=== PATIENT | male | born 1945 | race Caucasian/White ===

== ENCOUNTER 2016-10-05 06:57 | Inpatient (IN) | payer MEDICARE, BC ==
[2016-10-05] MEDS: SODIUM CHLORIDE 0.9% FLUSH 10 ML SOL IV PRN ×2 (08:06→09:17)
[2016-10-05 08:09] LABS: BASOPHILS % (AUTO) 1 % (0-3); EOSINOPHILS % (AUTO) 2 % (0-9); HEMATOCRIT 26 % (39-53); MEAN CORPUSCULAR HGB CONC 33.1 gm/dl (32.0-36.0); NEUTROPHILS % (AUTO) 85.5 % (37-80)
[2016-10-05 08:10] LABS: MEAN CORPUSCULAR VOLUME 100 fL (80-100)
[2016-10-05 08:19] LABS: CALCIUM 8.7 mg/dl (8.5-10.1); POTASSIUM 4.2 mMol/L (3.5-5.1)
[2016-10-05] MEDS ORDERED: METOPROLOL SUCCINATE 25 MG TAB.ER.24H PO SCH (09:00)
[2016-10-05] MEDS ORDERED: FUROSEMIDE 20mg SOL IV ONE (09:15)
[2016-10-05] MEDS ORDERED: FUROSEMIDE 20mg SOL ONE (09:16)
[2016-10-05 09:42] LABS: APPEARANCE,URINE Clear; BILIRUBIN,URINE NEGATIVE (NEGATIVE); COLOR,URINE Yellow; GLUCOSE, URINE (UA) TRACE (NEGATIVE); KETONES,URINE NEGATIVE (NEGATIVE); LEUKOCYTE ESTERASE ,URINE NEGATIVE (NEGATIVE); NITRATE,URINE NEGATIVE (NEGATIVE); OCCULT BLOOD,URINE NEGATIVE (NEG-TRACE); PH,URINE 6.5; UROBILINOGEN,URINE 0.2 (0.2-1.0 EU)
[2016-10-05 09:51] LABS: RBC,URINE 0-1 (0-3AV/HPF); WBC,URINE 0-1 (0-5AV/HPF)
[2016-10-05] MEDS: ENOXAPARIN 30 MG SOL SC SCH (14:29)
[2016-10-05] MEDS: NOVOLOG FLEXPEN SC SCH ×3 (14:29→20:47)
[2016-10-05] MEDS: ENOXAPARIN 100 MG SOL SC SCH (14:29)
[2016-10-05] MEDS: METOPROLOL SUCCINATE 50 MG ER TAB PO SCH ×2 (14:30→20:46)
[2016-10-05] MEDS: MAGNESIUM OXIDE 400 MG TAB PO SCH (20:45)
[2016-10-05] MEDS ORDERED: ATORVASTATIN 10 MG TAB PO SCH (21:00)
[2016-10-06] MEDS: ENOXAPARIN 100 MG SOL SC SCH ×2 (01:41→10:37)
[2016-10-06] MEDS: ENOXAPARIN 30 MG SOL SC SCH ×2 (01:41→10:35)
[2016-10-06 03:43] VITALS: RESP 20
[2016-10-06] MEDS: NOVOLOG FLEXPEN SC SCH (06:36)
[2016-10-06 07:26] LABS: BASOPHILS % (AUTO) 1 % (0-3); EOSINOPHILS % (AUTO) 3 % (0-9); HEMATOCRIT 28 % (39-53); MEAN CORPUSCULAR HGB CONC 32.5 gm/dl (32.0-36.0); MONOCYTES % (AUTO) 8.1 % (0-12); NEUTROPHILS % (AUTO) 83.4 % (37-80)
[2016-10-06 07:30] LABS: CALCIUM 8.9 mg/dl (8.5-10.1); POTASSIUM 3.5 mMol/L (3.5-5.1)
[2016-10-06 07:38] LABS: MEAN CORPUSCULAR VOLUME 99 fL (80-100)
[2016-10-06] MEDS ORDERED: POTASSIUM CHLORIDE 10 MEQ TER PO SCH (09:00)
[2016-10-06] MEDS ORDERED: MULTIVITAMIN2 1 EA TAB PO SCH (09:00)
[2016-10-06] MEDS ORDERED: ASPIRIN 81 MG CHEWABLE CTB PO SCH (09:00)
[2016-10-06] MEDS ORDERED: CHOLECALCIFEROL 1,000 IU TAB PO SCH (09:00)
[2016-10-06] MEDS ORDERED: BUMETANIDE 1 MG TAB PO SCH (09:00)
[2016-10-06 09:03] VITALS: BP 120/69; PULSE 89; TEMP 97.4; O2SAT 97
[2016-10-06] MEDS ORDERED: HEPARIN 500 Unit PRE-FILL 100 U/ML SOL IV ONE (09:11)
[2016-10-06] MEDS ORDERED: HEPARIN 500 Unit PRE-FILL 100 U/ML SOL IV PRN (09:12)
[2016-10-06] MEDS: SODIUM CHLORIDE 0.9% FLUSH 10 ML SOL IV PRN ×2 (09:14→09:15)
[2016-10-06] MEDS: METOPROLOL SUCCINATE 50 MG ER TAB PO SCH (09:18)
[2016-10-06] MEDS: MAGNESIUM OXIDE 400 MG TAB PO SCH (09:18)
== END 2016-10-06 12:00 | disposition home or self-care (01) | DRG 292 ==
LOC: ED 06:57 → UNDOADMOB 09:35 → ACUTE CARE 09:35 → OBSVTOIN 10:05 → ACUTE CARE 10:05
PROVIDERS: ADMIT Family Medicine; ATTEND Family Medicine
DX: I50.9 Heart failure, unspecified (principal); C15.9 Malignant neoplasm of esophagus, unspecified; E83.42 Hypomagnesemia; I48.91 Unspecified atrial fibrillation; E11.9 Type 2 diabetes mellitus without complications; Z79.4 Long term (current) use of insulin; E78.5 Hyperlipidemia, unspecified; I10 Essential (primary) hypertension
CPT/HCPCS: 36415; 36591; 71020; 80048; 80053; 81001; 82962; 83735; 83880; 84484; 85025; 85610; 93005; 93012; 96374; 99284; 99285; J1644; J1650; J1940; J1815

== ENCOUNTER 2017-01-17 15:55 | Inpatient (IN) | payer MEDICARE, BC ==
[2017-01-17 15:55] VITALS: O2SAT 97
[2017-01-17] MEDS ORDERED: ASPIRIN 81 MG CHEWABLE CTB ONE (16:01)
[2017-01-17] MEDS ORDERED: NITROGLYCERIN 0.4 MG TAB SL ONE (16:06)
[2017-01-17] MEDS: NITROGLYCERIN 0.4 MG TAB SL PRN ×2 (16:08→16:20)
[2017-01-17] MEDS ORDERED: ASPIRIN 81 MG CHEWABLE CTB PO STA (16:14)
[2017-01-17] MEDS ORDERED: SODIUM CHLORIDE 0.9% FLUSH 10 ML SOL IV PRN (16:14)
[2017-01-17] MEDS ORDERED: MORPHINE SULFATE 10 MG/ML SOL IV PRN (16:14)
[2017-01-17 16:22] LABS: BASOPHILS % (AUTO) 0 % (0-3); EOSINOPHILS % (AUTO) 5 % (0-9); HEMATOCRIT 31 % (39-53); MEAN CORPUSCULAR HGB CONC 34.6 gm/dl (32.0-36.0); MONOCYTES % (AUTO) 14.7 % (0-12)
[2017-01-17 16:24] LABS: MEAN CORPUSCULAR VOLUME 81 fL (80-100)
[2017-01-17 16:34] LABS: ALBUMIN 3.4 gm/dl (3.4-5.0); ALT 31 IU/L (14-63); CALCIUM 9.4 mg/dl (8.5-10.1); GLOM FILT RATE 32 mL/min (>60); MAGNESIUM 1.9 mg/dl (1.8-2.4); POTASSIUM 4.8 mMol/L (3.5-5.1); SODIUM 130 mMol/L (136-145)
[2017-01-17] MEDS: NOVOLOG FLEXPEN SC SCH ×2 (18:15→20:51)
[2017-01-17] MEDS: SODIUM CHLORIDE 0.9% 1000ML 1,000 ML IV SCH (19:02)
[2017-01-17] MEDS: HYDROXYZINE PAMOATE 25 MG CAP PO SCH (20:16)
[2017-01-17] MEDS: MAGNESIUM OXIDE 400 MG TAB PO SCH (20:47)
[2017-01-17] MEDS ORDERED: METOPROLOL SUCCINATE 50 MG ER TAB PO SCH (21:00)
[2017-01-17] MEDS ORDERED: ATORVASTATIN 10 MG TAB PO SCH (21:00)
[2017-01-18] MEDS: HYDROXYZINE PAMOATE 25 MG CAP PO SCH ×3 (03:19→12:09)
[2017-01-18] MEDS: NOVOLOG FLEXPEN SC SCH ×2 (06:00→12:07)
[2017-01-18 07:26] VITALS: BP 102/55; PULSE 69; RESP 16; TEMP 98
[2017-01-18 07:32] LABS: CALCIUM 9.6 mg/dl (8.5-10.1); POTASSIUM 4.4 mMol/L (3.5-5.1)
[2017-01-18] MEDS ORDERED: WARFARIN SODIUM 5 MG TAB PO SCH (09:00)
[2017-01-18] MEDS ORDERED: BUMETANIDE 1 MG TAB PO SCH (09:00)
[2017-01-18] MEDS ORDERED: SPIRONOLACTONE 25 MG TAB PO SCH (09:00)
[2017-01-18] MEDS ORDERED: ASPIRIN EC 81 MG PO SCH (09:00)
[2017-01-18] MEDS: SODIUM CHLORIDE 0.9% 1000ML 1,000 ML IV SCH (09:15)
[2017-01-18] MEDS: MAGNESIUM OXIDE 400 MG TAB PO SCH (09:21)
[2017-01-18] MEDS ORDERED: WARFARIN SODIUM 7.5 MG TAB PO SCH (18:00)
[2017-01-18] MEDS ORDERED: MAGNESIUM OXIDE 400 MG TAB PO SCH (21:00)
== END 2017-01-18 12:30 | disposition home or self-care (01) | DRG 313 ==
LOC: ED 15:55 → ACUTE CARE 17:22 → UNDOADMIN 17:22 → ACUTE CARE 18:15
PROVIDERS: ADMIT Family Medicine; ATTEND Emergency Medicine
DX: R07.9 Chest pain, unspecified (principal); E11.9 Type 2 diabetes mellitus without complications; E11.65 Type 2 diabetes mellitus with hyperglycemia; I48.2 Chronic atrial fibrillation; Z79.01 Long term (current) use of anticoagulants
CPT/HCPCS: 36415; 71010; 80048; 80053; 82550; 82962; 83735; 84484; 85025; 85610; 85730; 93005; 93012; 99285; 99291; J1815

== ENCOUNTER 2018-05-08 07:07 | Day surgery (SDC) | payer MEDICARE, BC ==
[2018-05-08] MEDS ORDERED: LIDOCAINE HCL 1% MPF 30 SOL ONE (07:42)
[2018-05-08] MEDS ORDERED: PROPOFOL 500 MG/50 ML EMU IV ONE ×2 (07:42→08:54)
[2018-05-08] MEDS ORDERED: PROPOFOL 10 MG/ML 200 MG/20 ML EMU IV ONE (09:00)
[2018-05-08 09:45] VITALS: TEMP 98.6
[2018-05-08 10:34] VITALS: BP 170/88; PULSE 75; RESP 20; O2SAT 100
== END 2018-05-08 10:41 | disposition home or self-care (01) | DRG 392 ==
LOC: SURG 07:07
PROVIDERS: ATTEND Internal Medicine Gastroenterology
DX: R13.10 Dysphagia, unspecified (principal); K57.32 Diverticulitis of large intestine without perforation or abscess without bleeding; Z12.11 Encounter for screening for malignant neoplasm of colon; K44.9 Diaphragmatic hernia without obstruction or gangrene; L53.8 Other specified erythematous conditions; D12.4 Benign neoplasm of descending colon; Z80.0 Family history of malignant neoplasm of digestive organs; R23.8 Other skin changes; K64.8 Other hemorrhoids
CPT/HCPCS: J2001; J2704